=== PATIENT | male | born 1995 | race Caucasian/White ===

== ENCOUNTER → 2017-11-04 14:19 | Outpatient (CLI) | payer OTHER, SELFPAY ==
--- NOTE | 2017-11-04 | DI.MRI.S_ITS ---
PROCEDURE: MR SHOULDER RT WO CON INDICATIONS: Right shoulder pain TECHNIQUE: Noncontrast oblique coronal T2 fast spin echo with fat saturation, oblique sagittal T1 spin echo and T2 fast spin echo with fat saturation, axial T1 spin echo and T2 fast spin echo with fat saturation through the shoulder. COMPARISON: None. FINDINGS: Image quality: Diagnostic. Rotator cuff: No full-thickness or high-grade partial-thickness tear of the rotator cuff is present. There is mild bursal surface fraying identified involving the distal supraspinatus tendon with corresponding minimal tendinopathy. The infraspinatus, subscapularis, and teres minor tendons are intact. There is no significant atrophy of the rotator cuff muscles. Bones and bursae: No acute fracture, dislocation, suspicious osseous lesion, or evidence of avascular necrosis is evident involving the right shoulder. Mild posterior subluxation of the humeral head with respect to the glenoid is present. There is no significant glenohumeral joint effusion. No significant degenerative changes of the acromioclavicular joint are present. There is minimal fluid identified within the subacromial subdeltoid bursa. Capsule and soft tissues: Evaluation of the labrum and the glenohumeral ligaments is difficult without intra-articular contrast. No acute glenohumeral ligament injuries are suspected. There is heterogeneity of the posterosuperior labrum. No displaced labral tears are appreciated. The long head of the biceps tendon is normally positioned within the bicipital groove and is otherwise intact and unremarkable. IMPRESSION: 1. Minimal bursal surface fraying and tendinopathy involving the distal supraspinatus tendon. 2. Minimal fluid within the subacromial subdeltoid bursa may be related to bursitis. 3. Heterogeneity of the posterosuperior labrum. If there is clinical concern for a subtle labral tear, please consider MR arthrography for further evaluation. Dictated by: Franklyn Campbell M.D. on 11/04/2017 at 16:04 Approved by: Franklyn Campbell M.D. on 11/04/2017 at 16:13
== END ==
PROVIDERS: PCP General Practice; Visit Provider Physician Assistant Medical
DX: M25.511 Pain in right shoulder (principal); M77.9 Enthesopathy, unspecified
CPT/HCPCS: 73221

== ENCOUNTER → 2017-11-26 18:40 | Outpatient (CLI) | payer OTHER, SELFPAY ==
--- NOTE | 2017-11-26 | DI.MRI.S_ITS ---
PROCEDURE: MR THORACIC SPINE WO CON INDICATIONS: Thoracic spine pain TECHNIQUE: Noncontrast sagittal T1 spine echo and T2 fast spin echo, sagittal STIR, axial T1 and T2 fast spin echo through the thoracic spine. COMPARISON: [facility] Outside Film, CR, XR THORACIC SPINE 2 VIEWS, 08/25/2017, 14:38. FINDINGS: Image quality: Excellent. Alignment and Curvature: There is slight dextroconvex curvature with normal bony alignment. Bone Marrow: Marrow is of normal overall signal. No acute vertebral body compression fractures. Spinal Cord: Visualized spinal cord is normal in size and signal. Paraspinous Soft Tissues: No paravertebral masses. Miscellaneous: On axial images, foramina appear widely patent at all scanned levels. There is evidence of disc degeneration at T6-7, T7-8 and T8-9. There is no appreciable disc protrusion at T6-7 or T7-8. There is mild right central annular bulge at T8-9 that partially effaces the thecal sac. No cord deformity or foraminal stenosis. IMPRESSION: 1. No fracture deformity or osseous abnormality. 2. No cord lesions. 3. Degenerative disc disease mid thoracic spine with mild right central annular bulge at T8-9 causing mild central canal stenosis.. Dictated by: Karlos Garcia M.D. on 11/27/2017 at 7:42 Approved by: Karlos Garcia M.D. on 11/27/2017 at 7:52
== END ==
PROVIDERS: PCP General Practice; Visit Provider Physical Medicine & Rehabilitation
DX: M51.34 Other intervertebral disc degeneration, thoracic region (principal); M51.24 Other intervertebral disc displacement, thoracic region; M48.04 Spinal stenosis, thoracic region
CPT/HCPCS: 72146

== ENCOUNTER 2017-12-29 09:33 | Emergency (ER) | payer OTHER, SELFPAY ==
[2017-12-29 09:51] VITALS: BP 127/83; PULSE 90; RESP 13; TEMP 36.7; O2SAT 99
[2017-12-29] MEDS: methylPREDNISolone 125 MG/2 ML VIAL IV (10:49)
[2017-12-29] MEDS: METOCLOPRAMIDE 10 MG/2 ML INJ IV (10:49)
[2017-12-29] MEDS: SODIUM CHLORIDE 0.9% 1,000 ML 1000 ML IV (10:50)
[2017-12-29] MEDS: KETOROLAC 60 MG/2 ML VIAL 15 MG IV (10:51)
--- NOTE | 2017-12-29 11:10 | ED.NAVMDI ---
HPI - Nausea/Vomiting/Diarrhea General Chief complaint: Nausea/Vomiting/Diarrhea Stated complaint: diarrhea, bad headaches. Time Seen by Provider: 12/29/17 09:35 Source: patient Mode of arrival: ambulatory Limitations: no limitations History of Present Illness HPI Narrative: 22-year-old male with history of fibromyalgia and chronic headaches presents to the emergency department with his chronic headache as well as widespread achy muscle. This morning he had 2 episodes of diarrhea which is common for him when his fibromyalgia acts. He denies any recent travel. Denies recent antibiotics. He denies any focal neurologic findings such as numbness, tingling or weakness. He denies any fever or chills. MD complaint: nausea and diarrhea Onset (ago): hour(s) Description of Diarrhea: watery Location of pain: diffuse Related Data Home Medications Medication Instructions Recorded Confirmed duloxetine 12/29/17 gabapentin 12/29/17 meloxicam [Mobic] 7.5 mg PO BIDCC PRN 12/29/17 Allergies Allergy/AdvReac Type Severity Reaction Status Date / Time No Known Drug Allergies Allergy Verified 12/29/17 10:17 Review of Systems Review of Systems All systems reviewed & are unremarkable except as noted in HPI and below Constitutional Denies chills, Denies fever(s), Reports headache(s), Denies lethargy and Denies weakness Eyes Denies change in vision, Denies eye discharge, Denies irritation and Denies loss of vision ENT Ears, Nose, Mouth, and Throat: Denies change in voice, Reports headache(s), Denies neck pain and Denies sore throat Cardiovascular Denies chest pain, Denies irregular heart rhythm, Denies lightheadedness, Denies palpitations, Denies dyspnea, Denies dyspnea on exertion and Denies orthopnea Respiratory Denies cough, Denies dyspnea, Denies dyspnea on exertion and Denies wheezing Gastrointestinal Gastrointestinal: Denies abdominal pain, Denies change in bowel habits, Reports diarrhea, Denies nausea and Denies vomiting Genitourinary Denies hematuria, Denies flank pain, Denies urinary incontinence and Denies urinary urgency Musculoskeletal Denies neck pain Integumentary/Breasts Denies pruritus, Denies erythema, Denies rash and Denies wounds Neurologic Denies confusion, Reports headache(s), Denies loss of vision and Denies weakness Psychiatric Denies anxiety, Denies confusion, Denies depression, Denies homicidal ideation and Denies suicidal ideation Endocrine Denies palpitations Hematologic/Lymphatic Denies easy bruising Allergic/Immunologic Denies wheezing Exam Initial Vital Signs Initial Vital Signs: Vital Signs Temperature 98.1 F 12/29/17 09:51 Pulse Rate 90 12/29/17 09:51 Respiratory Rate 13 12/29/17 09:51 Blood Pressure 127/83 H 12/29/17 09:51 Pulse Oximetry 99 12/29/17 09:51 Const General: cooperative and well developed Nutritional Appearance: well nourished Orientation: alert, awake, oriented x3 and not confused HENWA Head: normocephalic and atraumatic Ears: external ears normal and TM's normal bilaterally Nose: external nose normal and No nasal discharge Face and sinus: sinuses nontender, face symmetric, no sinus tenderness and No dry mucous membranes Mouth: oral mucosae normal and moist mucous membranes Teeth and gingiva: dentition normal Throat: tonsils normal and uvula midline Eyes General: appearance normal, both eyes and all related structures Eyelids: eyelids normal Conjunctivae: conjunctivae normal Sclera: sclerae normal Pupils: PERRL EOM: EOM intact bilaterally Neck Neck: normal visual inspection, trachea midline, No lymphadenopathy, No midline deformity and No JVD Lymphatic: No lymphedema Chest Chest: normal inspection of the chest Resp Effort & Inspection: normal respiratory effort, able to speak in complete sentences, no respiratory distress and no use of accessory muscles Auscultation: clear to auscultation bilaterally, no rales, no rhonchi and no wheezes Cardio Rate: regular rate Rhythm: regular rhythm Heart Sounds: no click, no gallops, no murmurs and no rubs Pulses: normal peripheral pulses GI Inspection: non-distended Palpation: soft, no hepatosplenomegaly, No guarding, No pulsatile mass and No tender Auscultation: normal bowel sounds Back/Spine/Pelvis Back: No CVA tenderness Cervical Spine: cervical ROM normal and No pain with cervical ROM Thoracic/Lumbar Spine: thoracic and lumbar spine normal to inspection Skin General: no rashes or lesions noted, No jaundice and No petechiae Neuro General: alert, oriented x3, gait normal and no focal motor deficits Speech: speech normal Extrem General: full ROM, no clubbing, cyanosis or edema, no pedal edema and no calf tenderness Psych Appearance: well kempt Mental Status: mental status grossly normal Attitude: cooperative Thought Content: normal and suicidality Judgment: judgment good Course Orders Ordered: ED Orders 12/29/17 11:02 Basic Metabolic Panel Stat Complete Blood Count AUTO DIFF Stat Discontinued Medications Sodium Chloride (Normal Saline 0.9%) 1,000 mls @ 1,000 mls/hr IV BOLUS ONE Stop: 12/29/17 11:13 Last Infusion: 12/29/17 11:43 Dose: 0 mls/hr Admin: 12/29/17 10:50 Dose: 1,000 mls/hr Ketorolac Tromethamine (Toradol) 15 mg IV NOW ONE Stop: 12/29/17 10:15 Last Admin: 12/29/17 10:51 Dose: 15 mg Methylprednisolone (Solu-Medrol 125 Mg Vial) 125 mg IV NOW ONE Stop: 12/29/17 10:15 Last Admin: 12/29/17 10:49 Dose: 125 mg Metoclopramide HCl (Reglan) 10 mg IV NOW ONE Stop: 12/29/17 10:15 Last Admin: 12/29/17 10:49 Dose: 10 mg Vital Signs - 8 hr 12/29/17 12:18 Temperature 98.0 F Pulse Rate 70 Respiratory Rate 16 Blood Pressure [Right Arm] 120/83 H Pulse Oximetry 100 MDM - Nausea/Vomiting/Diarrhea Lab Data Result diagrams: 12/29/17 11:02 12/29/17 11:02 Lab Results 12/29/17 12/29/17 Range/Units 11:02 11:02 WBC 6.5 (4.5-11.0) X10^3/uL RBC 5.42 (4.5-5.9) X10^6/uL Hgb 15.5 (13.5-17.5) g/dL Hct 45.0 (41-53) % MCV 83.0 (80-100) fL MCH 28.6 (26-34) PG MCHC 34.5 (30-36) % RDW 14.1 (11.6-14.8) % Plt Count 253 (150-400) X10^3/uL Neut % (Auto) 57.8 (50-75) % Lymph % (Auto) 26.5 (25-40) % [place] % (Auto) 11.4 (3-14) % Eos % (Auto) 3.1 (2-4) % Baso % (Auto) 1.2 (0-2) % Neut # (Auto) 3800 (9205-8704) /uL Sodium 141 (137-145) mmol/L Potassium 4.1 (3.4-5.1) mmol/L Chloride 100 (98-107) mmol/L Carbon Dioxide 31 (22-32) mmol/L BUN 11 (9-20) mg/dL Creatinine 0.90 (0.66-1.25) mg/dL Estimated GFR > 60.0 (>60) mL/min BUN/Creatinine Ratio 12.2 (6-22) Glucose 82 (70-100) mg/dL Calcium 9.4 (8.4-10.2) mg/dL Discharge Plan Departure Patient Disposition: Home, Self-Care Clinical Impression: Diarrhea Discharge Date/Time: 12/29/17 12:31 Interventions: ED Discharge Assessment Last Done: 12/29/17 12:30 Instructions: Diarrhea Activity Restrictions/Additional Instructions: *You have been diagnosed with [ diarrhea, chronic headaches ] *What to do: *Continue to take medications as directed *Return to ER if you should have any new, worsening or concerning symptoms Prescriptions: No Action gabapentin 300 mg capsule RF: 0 duloxetine 30 mg capsule,delayed release(DR/EC) RF: 0 meloxicam [Mobic] 7.5 MG tablet 7.5 mg PO BIDCC PRN (Reason: unknown) RF: 0 Referrals: Arabella Zheng MD [Primary Care Provider] - Antonio Waterman MD [Physician] - Stand Alone Forms: Work/School Restrictions
[2017-12-29 11:11] VITALS: BP 120/71; PULSE 74; RESP 16; TEMP 36.7; O2SAT 100
[2017-12-29 11:12] LABS: Add Manual Diff / Slide Review NO; Basophils Percent Auto 1.2 % (0-2); Eosinophils Percent Auto 3.1 % (2-4); Hemoglobin 15.5 g/dL (13.5-17.5); Lymphocytes Percent Auto 26.5 % (25-40); Mean Corpuscular HGB Conc 34.5 % (30-36); Mean Corpuscular Hemoglobin 28.6 PG (26-34); Monocytes Percent Auto 11.4 % (3-14); Neutrophils Absolute Auto 3800 /uL (3000-5900); Neutrophils Percent Auto 57.8 % (50-75); Platelet Count 253 X10^3/uL (150-400); Red Blood Cell Count 5.42 X10^6/uL (4.5-5.9); Red Cell Distribution Width 14.1 % (11.6-14.8); White Blood Cell Count 6.5 X10^3/uL (4.5-11.0)
[2017-12-29 11:29] LABS: BUN Creatinine Ratio 12.2 (6-22); Blood Urea Nitrogen 11 mg/dL (9-20); Calcium 9.4 mg/dL (8.4-10.2); Carbon Dioxide 31 mmol/L (22-32); Chloride 100 mmol/L (98-107); Estimated Glomerular Filt Rate > 60.0 mL/min (>60); Glucose 82 mg/dL (70-100); HEMOLYSIS < 15 (0-50); Potassium 4.1 mmol/L (3.4-5.1); Sodium 141 mmol/L (137-145)
[2017-12-29 12:18] VITALS: BP 120/83; PULSE 70; RESP 16; TEMP 36.7; O2SAT 100
== END 2017-12-29 12:31 | disposition home or self-care (01) ==
PROVIDERS: Emergency Provider Emergency Medicine; PCP General Practice
DX: R19.7 Diarrhea, unspecified (principal)
CPT/HCPCS: 80048; 85025; 96361; 96374; 96375; 99283; J1885; J2765; J2930